=== PATIENT | male | born 1995 ===

== ENCOUNTER 2016-12-16 10:03 | Emergency (ER) | payer OTHER ==
[2016-12-16 10:17] VITALS: O2SAT 98
[2016-12-16] MEDS ORDERED: Sodium Chloride 0.9% 1,000 ML IV STA ×2 (10:27→13:03)
--- NOTE | 2016-12-16 10:29 | ED PDOC ---
HPI: Abdomen Time Seen by Provider: 12/16/16 10:19 Chief Complaint (Nursing): Abdominal Pain Chief Complaint (Provider): vomiting, abdominal pain History Per: Patient Additional Complaint(s): 21 year old male presents to ED with vomiting and generalized abdominal pain for 2 days. Patient unable to keep down any liquids or solids. No associated diarrhea. No chest pain, shortness of breath or dyspnea on exertion. He rates current abdominal pain as a 4 out of 10. Patient denies consumption of any food that could've caused stomach upset. No recent travel, no recent sick contacts. Past Medical History Reviewed: Historical Data, Nursing Documentation, Vital Signs Vital Signs: Last Vital Signs Temp 97.0 F L 12/16/16 10:20 Pulse 69 12/16/16 10:20 Resp 16 12/16/16 10:20 BP 132/58 L 12/16/16 10:20 Pulse Ox 98 12/16/16 13:04 - Medical History PMH: No Chronic Diseases - Surgical History Surgical History: Hernia Repair - Family History Family History: States: No Known Family Hx - Living Arrangements Living Arrangements: With Family - Social History Current smoker - smoking cessation education provided: Yes Alcohol: None Drugs: Denies - Home Medications Home Medications: Ambulatory Orders Medication Instructions Recorded Dicyclomine [Bentyl] 10 mg PO QID PRN #15 cap 12/16/16 Ondansetron [Zofran Odt] 4 mg PO ASDIR PRN #15 odt 12/16/16 - Allergies Allergies/Adverse Reactions: Allergies Allergy/AdvReac Type Severity Reaction Status Date / Time No Known Allergies Allergy Verified 12/16/16 10:17 Review of Systems ROS Statement: Except As Marked, All Systems Reviewed And Found Negative Constitutional: Negative for: Fever, Chills Cardiovascular: Negative for: Chest Pain Respiratory: Negative for: Cough Gastrointestinal: Positive for: Nausea, Vomiting, Abdominal Pain. Negative for : Diarrhea, Constipation, Melena, Hematochezia, Hematemesis, Rectal Pain Genitourinary Male: Negative for: Dysuria Neurological: Negative for: Headache, Dizziness Physical Exam - Reviewed Nursing Documentation Reviewed: Yes Vital Signs Reviewed: Yes - Physical Exam Appears: Positive for: Well, Non-toxic, No Acute Distress Skin: Negative for: Rash Eye Exam: Positive for: Normal appearance Cardiovascular/Chest: Positive for: Regular Rate, Rhythm Respiratory: Positive for: Normal Breath Sounds Gastrointestinal/Abdominal: Positive for: Bowel Sounds (Normoactive bowel sounds in all 4 quadrants), Soft. Negative for: Tenderness, Distended, Guarding , Rebound Back: Negative for: L CVA Tenderness, R CVA Tenderness Extremity: Negative for: Pedal Edema Neurologic/Psych: Positive for: Alert, Oriented - Laboratory Results Result Diagrams: 12/16/16 11:00 12/16/16 11:00 - ECG O2 Sat by Pulse Oximetry: 98 Pulse Ox Interpretation: Normal - Other Rad Abd US X-Ray: Read By Radiologist X-Ray Interpretation: borderline splenomegaly, no other finding Medical Decision Making Medical Decision Makin-year-old male with vomiting and abdominal pain for 2 days. Plan: CBC CMP Lipase Urine dip Abd US IVF PO bentyl IV zofran Patient was able to tolerate juice in ED after meds given, he states that pain and nausea have resolved. Repeat abdominal exam demonstrates benign abdomen. Patien was given prescriptions for Zofran and Bentyl. He was referred to clinic for follow up. Disposition - Clinical Impression Clinical Impression: Nausea & vomiting, Abdominal pain - Patient ED Disposition Is Patient to be Admitted: No Counseled Patient/Family Regarding: Studies Performed, Diagnosis, Need For Followup, Rx Given - Disposition Referrals: [facility] [Outside] Disposition: Routine/Home Disposition Time: 13:23 Condition: STABLE Additional Instructions: Drink plenty of clear liquids and follow bland diet. Take prescription meds as directed as needed for nausea, vomiting and upset stomach. Follow up with clinic in 2-3 days. Prescriptions: Dicyclomine [Bentyl] 10 mg PO QID PRN #15 cap PRN Reason: Gi Distress Ondansetron [Zofran Odt] 4 mg PO ASDIR PRN #15 odt PRN Reason: Nausea/Vomiting Instructions: Acute Nausea and Vomiting (ED), Abdominal Pain (ED) Results - Lab Results Lab Results: 12/16/16 12/16/16 12/16/16 11:34 11:00 11:00 WBC 9.1 RBC 6.12 H Hgb 14.8 Hct 46.1 MCV 75.3 L MCH 24.1 L MCHC 32.1 L RDW 17.2 H Plt Count 189 MPV 10.2 Neut % (Auto) 66.1 Lymph % (Auto) 25.0 [place] % (Auto) 7.7 Eos % (Auto) 0.7 Baso % (Auto) 0.5 Neut # 6.0 Lymph # 2.3 [place] # 0.7 Eos # 0.1 Baso # 0.0 Sodium 141 Potassium 3.7 Chloride 101 Carbon Dioxide 27 Anion Gap 17 BUN 14 Creatinine 1.0 Est GFR ( Amer) > 60 Est GFR (Non-Af Amer) > 60 Random Glucose 97 Calcium 9.6 Total Bilirubin 0.6 AST 23 ALT 33 Alkaline Phosphatase 54 Total Protein 8.3 H Albumin 4.8 Globulin 3.5 Albumin/Globulin Ratio 1.4 Lipase 39
[2016-12-16 11:29] LABS: BASO % 0.5 % (0.0-2.0); EOS # 0.1 K/uL (0.0-0.7); EOS % 0.7 % (0.0-4.0); HEMATOCRIT 46.1 % (35.0-51.0); LYMPH # 2.3 K/uL (1.0-4.3); MEAN CELL VOLUME 75.3 fl (80.0-94.0); MEAN CORPUSCULAR HEMOGLOBIN 24.1 pg (27.0-31.0); MEAN CORPUSCULAR HGB CONC 32.1 g/dL (33.0-37.0); MEAN PLATELET VOLUME 10.2 fl (7.2-11.7); MONO # 0.7 K/uL (0.0-0.8); MONO % 7.7 % (0.0-10.0); NEUT % 66.1 % (50.0-75.0); NRBC % 0.2 % (0.0-0.0); RED CELL DISTRIBUTION WIDTH 17.2 % (11.5-14.5); WHITE BLOOD COUNT 9.1 K/uL (4.8-10.8)
[2016-12-16 11:32] LABS: ALB/GLOB RATIO 1.4 (1.0-2.1); ALKALINE PHOSPHATASE 54 U/L (38-126); ALT/SGPT 33 U/L (21-72); AST/SGOT 23 U/L (17-59); BILIRUBIN,TOTAL 0.6 mg/dl (0.2-1.3); BLOOD UREA NITROGEN 14 mg/dl (9-20); CALCIUM 9.6 mg/dL (8.4-10.2); CARBON DIOXIDE 27 mmol/L (22-30); CHLORIDE 101 mmol/L (98-107); GFR AFRICAN-AMERICAN > 60; GLUCOSE,RANDOM 97 mg/dL (75-110); POTASSIUM 3.7 MMOL/L (3.6-5.0); SODIUM 141 mmol/l (132-148); TOTAL PROTEIN 8.3 G/DL (6.3-8.2)
[2016-12-16 11:33] VITALS: BP 132/58; PULSE 69; RESP 16; TEMP 97
--- NOTE | 2016-12-16 11:49 | US ---
HISTORY: epigastric/ruq abd pain, vomiting COMPARISON: None available TECHNIQUE: Sonographic evaluation of the abdomen. FINDINGS: LIVER: Measures 16.0 cm in sagittal dimension and appears within normal limits of size, shape, and echotexture. No focal hepatic mass identified. The main portal vein appears patent with normal directional flow. No intrahepatic bile duct dilatation. GALLBLADDER: No gallstones. No gallbladder wall thickening. Negative sonographic Luna's sign as assessed by the process improvement analyst. COMMON BILE DUCT: Measures 2 mm. PANCREAS: Not well visualized. RIGHT KIDNEY: Measures 10.7 x 5.7 x 4.3cm. No obstructing calculus or hydronephrosis identified. LEFT KIDNEY: Measures 11.3 x 5.2 x 5.1cm. No obstructing calculus or hydronephrosis identified. SPLEEN: Spleen measures approximately 12.8 cm. AORTA: Limited views appear unremarkable. IVC: Limited views appear unremarkable. OTHER FINDINGS: None. IMPRESSION: Borderline splenomegaly.
== END 2016-12-16 14:07 | disposition home or self-care (01) ==
LOC: H.ER 10:03
DX: R11.2 Nausea with vomiting, unspecified (principal); R10.9 Unspecified abdominal pain